=== PATIENT | female | born 1935 | race Caucasian/White ===

== ENCOUNTER 2016-03-13 10:57 | Emergency (ER) | payer MEDICARE, BC ==
[2016-03-13] MEDS ORDERED: DUONEB INH ONE ×2 (12:52)
[2016-03-13] MEDS ORDERED: ALBUTEROL HFA INH ONE (13:47)
== END 2016-03-13 14:05 | disposition home or self-care (01) ==
LOC: ER 10:57
DX: J20.9 Acute bronchitis, unspecified (principal); Z79.01 Long term (current) use of anticoagulants; Z95.2 Presence of prosthetic heart valve; I10 Essential (primary) hypertension
CPT/HCPCS: 36415; 71020; 80053; 83880; 85025; 85610; 85730; 94640